=== PATIENT | female | born 1990 | race Hispanic/Latino ===

== ENCOUNTER 2017-07-14 21:16 | Emergency (ER) | payer OTHER ==
[2017-07-14 21:22] VITALS: O2SAT 97
[2017-07-14 22:23] LABS: BASO # 0.1 K/uL (0.0-0.2); BASO % 0.9 % (0.0-2.0); EOS # 0.1 K/uL (0.0-0.7); EOS % 2.3 % (0.0-4.0); HEMATOCRIT 40.8 % (34.0-47.0); LYMPH # 2.3 K/uL (1.0-4.3); LYMPH % 37.7 % (20.0-40.0); MEAN CELL VOLUME 98.9 fl (81.0-99.0); MEAN CORPUSCULAR HEMOGLOBIN 32.4 pg (27.0-31.0); MEAN CORPUSCULAR HGB CONC 32.8 g/dL (33.0-37.0); MEAN PLATELET VOLUME 7.2 fl (7.2-11.7); MONO # 0.5 K/uL (0.0-0.8); NEUT # 3.1 K/uL (1.8-7.0); NEUT % 51.1 % (50.0-75.0); NRBC % 0.1 % (0.0-0.0); RED CELL DISTRIBUTION WIDTH 13.8 % (11.5-14.5); WHITE BLOOD COUNT 6.2 K/uL (4.8-10.8)
--- NOTE | 2017-07-14 22:26 | ED PDOC ---
HPI: Psych/Substance Abuse Time Seen by Provider: 07/14/17 21:37 Chief Complaint (Nursing): Alcohol Ingestion Chief Complaint (Provider): Alcohol Ingestion ED Caveat: Intoxicated History Per: EMS History/Exam Limitations: intoxication Current Symptoms Are (Timing): Still Present Additional Complaint(s): 27 y/o female presents to the emergency department via ambulance after she was found intoxicated. Patient had fallen after being at a tanning salon intoxicated. Alcohol on breath noted. Patient is unable to provide us with history. Past Medical History Reviewed: Historical Data, Nursing Documentation, Vital Signs Vital Signs: Last Vital Signs Temp 97.0 F L 07/14/17 21:18 Pulse 139 H 07/14/17 21:18 Resp 20 07/14/17 21:18 BP 144/95 H 07/14/17 21:18 Pulse Ox 97 07/14/17 21:18 - Medical History PMH: Denies: Chronic Kidney Disease - Family History Family History: States: No Known Family Hx - Allergies Allergies/Adverse Reactions: Allergies Allergy/AdvReac Type Severity Reaction Status Date / Time Unobtainable Allergy Verified 06/22/14 05:46 Review of Systems Review Of Systems: ROS cannot be obtained secondary to pt's inabilty to answer questions. (Unable to give history due to alcohol intoxication) Physical Exam - Reviewed Nursing Documentation Reviewed: Yes Vital Signs Reviewed: Yes - Physical Exam Appears: Positive for: Non-toxic, No Acute Distress Head Exam: Positive for: ATRAUMATIC, NORMAL INSPECTION, NORMOCEPHALIC Skin: Positive for: Normal Color, Warm, Dry Eye Exam: Positive for: Normal appearance (Pupils are equal and round about 4 mm in diameter.) ENT: Positive for: Other (Mild abrasion on bridge of nose with mild swelling). Negative for: Normal ENT Inspection Cardiovascular/Chest: Positive for: Regular Rate, Rhythm. Negative for: Murmur Respiratory: Positive for: Normal Breath Sounds. Negative for: Accessory Muscle Use, Respiratory Distress Gastrointestinal/Abdominal: Positive for: Normal Exam, Soft. Negative for: Tenderness Extremity: Positive for: Normal ROM. Negative for: Pedal Edema Neurologic/Psych: Positive for: Other (Patient is sleeping and responds to tactile stimuli. ) - Laboratory Results Result Diagrams: 07/14/17 22:15 07/14/17 22:15 - ECG O2 Sat by Pulse Oximetry: 97 (RA) Pulse Ox Interpretation: Normal Medical Decision Making Medical Decision Making: Time: 2214 Initial Impression: Alcohol intoxication with head injury Initial Plan: --Head CT --CMP --HCG, Qualitative Serum --CBC w. diff --1:1 Observation CONT --Reevaluation Time: 2233 --Head CT FINDINGS: Brain: Unremarkable. No hemorrhage. No significant white matter disease. No edema. Ventricles: Unremarkable. No ventriculomegaly. Bones/joints: Unremarkable. No acute fracture. Soft tissues: Unremarkable. Sinuses: Unremarkable as visualized. No acute sinusitis. Mastoid air cells: Unremarkable as visualized. No mastoid effusion. IMPRESSION: Normal head/brain CT. --HCG: NEGATIVE Scribe~Attestation: Documented by Shari Mccall, acting as a scribe for Luanne Dietz MD. Provider Scribe~Attestation: All medical record entries made by the Scribe were at my direction and personally dictated by me. I have reviewed the chart and agree that the record accurately reflects my personal performance of the history, physical exam, medical decision making, and the department course for this patient. I have also personally directed, reviewed, and agree with the discharge instructions and disposition. Disposition - Clinical Impression Clinical Impression: Alcohol abuse - Patient ED Disposition Is Patient to be Admitted: Transfer of Care Doctor Will See Patient In The: Office - Disposition Disposition: Transfer of Care Disposition Time: 23:15 Condition: GUARDED Forms: [email or web address] (Lithuanian) Patient Signed Over To: Peter Sanchez Present On Arrival: None
[2017-07-14 22:36] LABS: ALB/GLOB RATIO 1.3 (1.0-2.1); ALKALINE PHOSPHATASE 51 U/L (38-126); ALT/SGPT 47 U/L (9-52); AST/SGOT 41 U/L (14-36); BILIRUBIN,TOTAL 0.2 mg/dl (0.2-1.3); BLOOD UREA NITROGEN 22 mg/dl (7-17); CALCIUM 8.8 mg/dL (8.4-10.2); CARBON DIOXIDE 22 mmol/L (22-30); CHLORIDE 110 mmol/L (98-107); GFR AFRICAN-AMERICAN > 60; GLUCOSE,RANDOM 104 mg/dL (65-105); POTASSIUM 3.6 MMOL/L (3.6-5.0); SODIUM 151 mmol/l (132-148); TOTAL PROTEIN 7.7 G/DL (6.3-8.2)
[2017-07-14] MEDS ORDERED: Sodium Chloride 0.9% 1,000 ML IV STA (23:39)
--- NOTE | 2017-07-15 00:39 | ED PDOC ---
- Laboratory Results Result Diagrams: 07/14/17 22:15 07/14/17 22:15 - ECG O2 Sat by Pulse Oximetry: 97 (RA) Medical Decision Making Medical Decision Making: Time: 00:00 Patient is signed over to me by Dr. Dietz pending sobriety. Time: 01:30 Upon provider reevaluation patient is medically stable, alert and orientedx3, has steady gait and fluent speech.Patient will be discharged home with a friend at bedside. Clinical Impression: Alcohol Intoxication Scribe Attestation: Documented by Sayda Mayfield acting as a scribe for Peter Sanchez MD. Scribe Attestation: All medical record entries made by the Scribe were at my direction and personally dictated by me. I have reviewed the chart and agree that the record accurately reflects my personal performance of the history, physical exam, medical decision making, and the department course for this patient. I have also personally directed, reviewed, and agree with the discharge instructions and disposition. Disposition - Clinical Impression Clinical Impression: Alcohol abuse with intoxication - POA Present On Arrival: None - Disposition Disposition: Routine/Home Disposition Time: 01:30 Condition: STABLE Instructions: Alcohol Intoxication (ED) Forms: [employer] (Georgian)
[2017-07-15 01:37] VITALS: BP 118/70; PULSE 86; RESP 18; TEMP 98.2
--- NOTE | 2017-07-15 13:58 | CT ---
PROCEDURE: CT HEAD WITHOUT CONTRAST. HISTORY: intoxicated with head injury COMPARISON: 06/22/[address] TECHNIQUE: Axial computed tomography images were obtained through the head/brain without intravenous contrast. Radiation dose: Total exam DLP = 1458.36 mGy-cm. This CT exam was performed using one or more of the following dose reduction techniques: Automated exposure control, adjustment of the mA and/or kV according to patient size, and/or use of iterative reconstruction technique. FINDINGS: HEMORRHAGE: No intracranial hemorrhage. BRAIN: Normal howard-white matter differentiation and density are appreciated throughout the cerebrum and cerebellum with the brainstem appearing unremarkable as well. There is no mass effect. There is no suspicious extra-axial fluid collection and the midline brain anatomy appears diffusely unremarkable. VENTRICLES: Unremarkable. No hydrocephalus. CALVARIUM: No destructive bony lesion or displaced fracture identified including through the skullbase. PARANASAL SINUSES: Unremarkable as visualized. No significant inflammatory changes. MASTOID AIR CELLS: Unremarkable as visualized. No inflammatory changes. OTHER FINDINGS: None. IMPRESSION: Unremarkable unenhanced CT of the Head. No significant interval change compared to 06/22/2014 CT.
== END 2017-07-15 01:35 | disposition home or self-care (01) ==
LOC: H.ER 21:16
DX: S09.90XA Unspecified injury of head, initial encounter (principal); W19.XXXA Unspecified fall, initial encounter; Y92.89 Other specified places as the place of occurrence of the external cause; F10.129 Alcohol abuse with intoxication, unspecified
CPT/HCPCS: 70450; 80053; 80320; 84703; 85025; 96360; 99283; J7040

== ENCOUNTER 2017-08-04 02:09 | Emergency (ER) | payer OTHER ==
[2017-08-04 02:13] VITALS: TEMP 98.6
--- NOTE | 2017-08-04 02:51 | ED PDOC ---
HPI: Psych/Substance Abuse Time Seen by Provider: 08/04/17 02:16 Chief Complaint (Nursing): Alcohol Ingestion Chief Complaint (Provider): Public Intoxication ED Caveat: Intoxicated History Per: EMS History/Exam Limitations: intoxication Onset/Duration Of Symptoms: Mins (just prior to arrival) Current Symptoms Are (Timing): Still Present Additional Complaint(s): 27 y/o female, brought in by [facility], presents to the ED for public intoxication. As per EMS, patient was found passed out in the back of an [employer]. History obtained as well as review of systems are limited secondary to the patients inability to answer any of the provider's questions. Past Medical History Reviewed: Historical Data, Nursing Documentation, Vital Signs, Unable To Obtain (patient is intoxicated) Vital Signs: Last Vital Signs Temp 98.6 F 08/04/17 02:11 Pulse 112 H 08/04/17 02:11 Resp 16 08/04/17 02:11 BP 139/94 H 08/04/17 02:11 Pulse Ox 99 08/04/17 02:11 - Medical History PMH: Denies: Chronic Kidney Disease - Home Medications Home Medications: Ambulatory Orders Medication Instructions Recorded No Known Home Med 08/04/17 - Allergies Allergies/Adverse Reactions: Allergies Allergy/AdvReac Type Severity Reaction Status Date / Time No Known Allergies Allergy Verified 08/04/17 02:13 Review of Systems ROS Statement: Except As Marked, All Systems Reviewed And Found Negative Review Of Systems: ROS cannot be obtained secondary to pt's inabilty to answer questions. (intoxicated) Physical Exam - Reviewed Nursing Documentation Reviewed: Yes Vital Signs Reviewed: Yes - Physical Exam Appears: Positive for: Non-toxic, No Acute Distress Head Exam: Positive for: ATRAUMATIC, NORMOCEPHALIC Skin: Positive for: Normal Color, Warm Eye Exam: Positive for: Normal appearance, EOMI, PERRL ENT: Positive for: Normal ENT Inspection Neck: Positive for: Normal, Painless ROM, Supple Cardiovascular/Chest: Positive for: Regular Rate, Rhythm. Negative for: Murmur Respiratory: Positive for: Normal Breath Sounds. Negative for: Respiratory Distress Gastrointestinal/Abdominal: Positive for: Normal Exam, Soft. Negative for: Tenderness Back: Positive for: Normal Inspection Extremity: Positive for: Normal ROM. Negative for: Pedal Edema, Deformity Neurologic/Psych: Positive for: Alert (speech is slurred). Negative for: Oriented - Laboratory Results Result Diagrams: 08/04/17 03:05 08/04/17 03:05 - ECG O2 Sat by Pulse Oximetry: 99 (RA) Pulse Ox Interpretation: Normal Medical Decision Making Medical Decision Making: Time: --02:20 Impression: --27 y/o intoxicated female Plan: --Accucheck --Alcohol Serum --Labs --Drug Screen, Urine --ED Urine Dip --Urine Reassess --07:00 Patient to be signed out to Dr. Domenico Sy MD pending clinical sobriety. Scribe Attestation: Documented by Jamie Haque acting as a scribe for Peter Sanchez MD. Disposition - Disposition Forms: [employer] (Divehi)
[2017-08-04 03:25] LABS: BASO # 0.1 K/uL (0.0-0.2); BASO % 1.1 % (0.0-2.0); EOS # 0.2 K/uL (0.0-0.7); EOS % 3.2 % (0.0-4.0); HEMOGLOBIN 12.7 g/dL (12.0-16.0); LYMPH % 45.9 % (20.0-40.0); MEAN CELL VOLUME 97.8 fl (81.0-99.0); MEAN CORPUSCULAR HEMOGLOBIN 33.1 pg (27.0-31.0); MEAN CORPUSCULAR HGB CONC 33.9 g/dL (33.0-37.0); MEAN PLATELET VOLUME 7.3 fl (7.2-11.7); MONO # 0.7 K/uL (0.0-0.8); MONO % 10.4 % (0.0-10.0); NEUT # 2.5 K/uL (1.8-7.0); NEUT % 39.4 % (50.0-75.0); NRBC % 0.2 % (0.0-0.0); RBC 3.84 Mil/uL (3.80-5.20); RED CELL DISTRIBUTION WIDTH 13.6 % (11.5-14.5); WHITE BLOOD COUNT 6.5 K/uL (4.8-10.8)
[2017-08-04 03:44] LABS: BLOOD UREA NITROGEN 19 mg/dl (7-17); CALCIUM 8.6 mg/dL (8.4-10.2); GFR AFRICAN-AMERICAN > 60; GFR NON-AFRICAN AMERICAN > 60
[2017-08-04 07:45] VITALS: RESP 16; O2SAT 98
--- NOTE | 2017-08-04 08:03 | ED PDOC ---
- Laboratory Results Result Diagrams: 08/04/17 03:05 08/04/17 03:05 - ECG O2 Sat by Pulse Oximetry: 98 Pulse Ox Interpretation: Normal Medical Decision Making Medical Decision Makin:00 -Patient endorsed to me by Dr. Sanchez, pending sobriety 08:00 -Patient is sober and wants to go home. pt ambulating with steady gait and no evidence of intoxication. advise to abstain from etoh. Disposition Counseled Patient/Family Regarding: Studies Performed, Diagnosis, Need For Followup - Clinical Impression Clinical Impression: Alcohol abuse with intoxication - POA Present On Arrival: None - Disposition Referrals: Alcoholics Anonymous [Outside] [facility] [Outside] Disposition: Routine/Home Disposition Time: 08:00 Condition: GOOD Instructions: Alcohol Intoxication (ED) Forms: [employer] (Amharic)
[2017-08-04 08:28] VITALS: BP 120/75; PULSE 100
== END 2017-08-04 08:28 | disposition home or self-care (01) ==
LOC: H.ER 02:09
DX: F10.129 Alcohol abuse with intoxication, unspecified (principal)

== ENCOUNTER 2018-06-26 16:29 | Emergency (ER) | payer SELFPAY ==
[2018-06-26 16:43] VITALS: TEMP 97.7
--- NOTE | 2018-06-26 17:11 | ED PDOC ---
HPI: Psych/Substance Abuse Time Seen by Provider: 06/26/18 17:01 Chief Complaint (Nursing): Alcohol Ingestion ED Caveat: Intoxicated History Per: Patient, EMS History/Exam Limitations: intoxication Onset/Duration Of Symptoms: Days (1) Current Symptoms Are (Timing): Still Present Suicide/Self Injury Attempted (Context): None Modifying Factor(s): Alcohol Severity: Moderate Pain Scale Rating Of: 0 Associated Symptoms: denies: Suicidal Thoughts, Suicidal Plan Involuntary Hold By: None Past Medical History Reviewed: Historical Data, Nursing Documentation, Vital Signs Vital Signs: Last Vital Signs Temp 97.7 F 06/26/18 16:40 Pulse 98 H 06/26/18 16:40 Resp 18 06/26/18 16:40 BP 161/96 H 06/26/18 16:40 Pulse Ox 100 06/26/18 16:40 - Medical History PMH: No Chronic Diseases Denies: Chronic Kidney Disease - Surgical History Surgical History: No Surg Hx - Family History Family History: States: Unknown Family Hx - Home Medications Home Medications: Ambulatory Orders Medication Instructions Recorded RX: No Known Home Med 08/04/17 - Allergies Allergies/Adverse Reactions: Allergies Allergy/AdvReac Type Severity Reaction Status Date / Time No Known Allergies Allergy Verified 06/26/18 16:40 Review of Systems Review Of Systems: ROS cannot be obtained secondary to pt's inabilty to answer questions. (refused to answer) Physical Exam - Reviewed Nursing Documentation Reviewed: Yes Vital Signs Reviewed: Yes - Physical Exam Appears: Positive for: Non-toxic, No Acute Distress Head Exam: Positive for: ATRAUMATIC, NORMAL INSPECTION Skin: Positive for: Warm, Dry Eye Exam: Positive for: EOMI Cardiovascular/Chest: Positive for: Regular Rate, Rhythm Respiratory: Negative for: Respiratory Distress Neurologic/Psych: Positive for: Alert, Oriented, Gait (unsteady), Other (slurred speech) - ECG O2 Sat by Pulse Oximetry: 100 - Progress Re-evaluation Time: 18:20 Condition: Re-examined, Improved Medical Decision Making Medical Decision Making: Impression Alcohol intoxication Disposition - Clinical Impression Clinical Impression: Alcohol intoxication - Patient ED Disposition Is Patient to be Admitted: No Doctor Will See Patient In The: Office Counseled Patient/Family Regarding: Studies Performed, Diagnosis - Disposition Disposition: Routine/Home Disposition Time: 18:26 Condition: IMPROVED Instructions: Alcohol Abuse and Alcoholism (DC)
[2018-06-26 18:40] VITALS: BP 118/64; PULSE 84; RESP 16
[2018-06-26 22:06] VITALS: O2SAT 100
== END 2018-06-26 18:51 | disposition home or self-care (01) ==
LOC: H.ER 16:29
DX: F10.129 Alcohol abuse with intoxication, unspecified (principal)